=== PATIENT | female | born 1975 | race Caucasian/White ===

== ENCOUNTER 2018-04-30 15:13 | Emergency (ER) | payer SELFPAY ==
[~2018-04-30] VITALS: Ht 160 cm; Wt 77.1 kg
[2018-04-30 15:14] VITALS: Ht 160 cm; Wt 77.1 kg
[2018-04-30 17:54] LABS: PLATELET COUNT 250 x10^3mcL (130-400); RED CELL DISTRIBUTION WIDTH 13.5 % (11.5-14.5)
[2018-04-30 18:01] LABS: CALCIUM 9.3 mg/dL (8.5-10.1); CARBON DIOXIDE 24.4 mmol/L (21-32); CHLORIDE SERUM 104 mmol/L (98-107); CREATININE SERUM 0.9 mg/dL (0.6-1.0); GFR1 > 60 mL/min; GLUCOSE SERUM 95 mg/dL (74-106); POTASSIUM SERUM 3.2 mmol/L (3.5-5.1); SODIUM SERUM 140 mmol/L (136-145)
[2018-04-30 18:10] LABS: ALBUMIN 4.1 g/dL (3.4-5.0); ALKALINE PHOSPHATASE 90 U/L (46-116); ALT/SGPT 20 U/L (14-59); AST/SGOT 18 U/L (15-37); BILIRUBIN TOTAL 0.22 mg/dL (0.20-1.00); LIPASE 238 IU/L (73-393)
[2018-04-30 18:15] LABS: TOTAL PROTEIN, SERUM 8.9 g/dL (6.4-8.2)
[2018-04-30 19:33] VITALS: BP 129/86
== END 2018-04-30 19:33 | disposition home or self-care (01) ==
LOC: ED 15:13
PROVIDERS: Emergency Medicine
DX: R07.89 Other chest pain (principal); G89.29 Other chronic pain; H92.01 Otalgia, right ear; E78.00 Pure hypercholesterolemia, unspecified; R10.11 Right upper quadrant pain
CPT/HCPCS: 36415; Q0092

== ENCOUNTER 2018-10-08 18:20 | Emergency (ER) | payer MEDICAID ==
[~2018-10-08] VITALS: Ht 152.4 cm; Wt 68.0 kg
[2018-10-08 18:31] VITALS: Ht 152.4 cm; Wt 68.0 kg
[2018-10-08 22:05] VITALS: BP 106/72
== END 2018-10-08 22:05 | disposition home or self-care (01) ==
LOC: ED 18:20
DX: B02.9 Zoster without complications (principal); H81.11 Benign paroxysmal vertigo, right ear
CPT/HCPCS: J1885; J8597